=== PATIENT | female | born 1995 | race Two or more races ===

== ENCOUNTER 2023-03-20 07:12 | Emergency (ER) | payer OTHER ==
[~2023-03-20] VITALS: Ht 160 cm; Wt 92.1 kg
[2023-03-20] MEDS ORDERED: PRENATAL + DHA1 EAC1 (07:25)
== END 2023-03-20 12:49 | disposition home or self-care (01) ==
LOC: ER 07:12
DX: O21.9 Vomiting of pregnancy, unspecified (principal); Z3A.08 8 weeks gestation of pregnancy; R10.11 Right upper quadrant pain; K76.0 Fatty (change of) liver, not elsewhere classified; R16.0 Hepatomegaly, not elsewhere classified

== ENCOUNTER → 2023-03-21 | Emergency (ER) | payer OTHER ==
[~2023-03-21] VITALS: Ht 152.4 cm; Wt 91.6 kg
[~2023-03-21] MED LIST: PRENATAL + DHA1 EAC1
== END | disposition left against medical advice (07) ==
LOC: ER 18:29
DX: O98.511 Other viral diseases complicating pregnancy, first trimester (principal); U07.1 COVID-19; Z3A.08 8 weeks gestation of pregnancy